=== PATIENT | male | born 2000 | race Caucasian/White ===

== ENCOUNTER 2021-05-24 06:34 | Emergency (ER) | payer OTHER ==
[~2021-05-24] VITALS: Ht 177.8 cm; Wt 104.3 kg
[2021-05-24] MEDS ORDERED: FUNGI NAIL TOP (07:22)
== END 2021-05-24 07:40 | disposition home or self-care (01) ==
LOC: FER 06:34
DX: S90.211A Contusion of right great toe with damage to nail, initial encounter (principal); F17.290 Nicotine dependence, other tobacco product, uncomplicated; Z86.73 Personal history of transient ischemic attack (TIA), and cerebral infarction without residual deficits; W45.0XXA Nail entering through skin, initial encounter
CPT/HCPCS: 99283

== ENCOUNTER 2021-07-22 16:59 | Emergency (ER) | payer OTHER ==
[~2021-07-22 16:59] MED LIST: FUNGI NAIL TOP
[2021-07-22 20:53] LABS: BILIRUBIN NEGATIVE (NEGATIVE); BLOOD 3+ Ery/uL (NEGATIVE); CLARITY CLEAR (CLEAR); COLOR YELLOW (YELLOW); GLUCOSE (U) NORMAL (NORMAL); LEUKOCYTES NEGATIVE Leu/uL (NEGATIVE); NITRITE NEGATIVE (NEGATIVE); PROTEIN NEGATIVE (NEGATIVE); SPECIFIC GRAVITY >=1.030 (1.001-1.030); UROBILINOGEN 0.2 mg/dL (0.2-1.0)
[2021-07-22 20:59] LABS: BACTERIA TRACE; MUCOUS MODERATE
[2021-07-22 21:17] LABS: HCT 43.2 % (42.0-52.0); HGB 14.8 g/dl (13.2-18.0); MCHC 34.3 g/dL (32.0-36.0); MCV 93.5 fL (78.0-100.0); MPV 9.6 fL (6.0-9.5); NRBC 0; PLT 296 K/uL (150-400); RBC 4.62 M/uL (4.70-6.00); RDW 11.9 % (11.5-14.0); WBC 10.7 K/uL (4.0-10.5)
[2021-07-22 21:26] LABS: BASOPHIL 0.2 % (0-2); EOSINOPHIL 1.9 % (0-5); NEUTROPHIL 65.2 % (41-80)
[2021-07-22 21:47] LABS: ALBUMIN 4.2 g/dL (3.4-5.0); BILIRUBIN - TOTAL 0.5 mg/dL (0.2-1.0); BUN/CREAT RATIO (CALC) 17.4 RATIO; CREATININE 0.86 mg/dL (0.67-1.17); GLOBULIN (CALCULATION) 3.7 g/dL; POTASSIUM 3.4 mmol/L (3.5-5.1); TOTAL PROTEIN 7.9 g/dL (6.4-8.2)
== END 2021-07-22 22:45 | disposition home or self-care (01) ==
LOC: FER 16:59
PROVIDERS: Internal Medicine
DX: R10.32 Left lower quadrant pain (principal)
CPT/HCPCS: 36415; 80053; 81001; 83690; 85025

== ENCOUNTER 2021-07-29 13:11 | Emergency (ER) | payer OTHER ==
[2021-07-29 17:01] LABS: BASOPHIL 0.5 % (0-2); HCT 44.1 % (42.0-52.0); HGB 15.2 g/dl (13.2-18.0); LYMPHOCYTE 37.3 % (15-48); MCH 32.5 pg (25.0-31.0); MCHC 34.5 g/dL (32.0-36.0); MCV 94.2 fL (78.0-100.0); MONOCYTE 7.2 % (0-12); MPV 9.6 fL (6.0-9.5); NEUTROPHIL 50.5 % (41-80); NRBC 0; PLT 310 K/uL (150-400); RBC 4.68 M/uL (4.70-6.00); RDW 12.2 % (11.5-14.0); WBC 8.1 K/uL (4.0-10.5)
[2021-07-29 17:19] LABS: CREATININE 0.79 mg/dL (0.67-1.17); POTASSIUM 4.3 mmol/L (3.5-5.1)
[2021-07-29 18:37] LABS: BILIRUBIN NEGATIVE (NEGATIVE); BLOOD NEGATIVE Ery/uL (NEGATIVE); CLARITY CLEAR (CLEAR); COLOR YELLOW (YELLOW); GLUCOSE (U) NORMAL (NORMAL); LEUKOCYTES NEGATIVE Leu/uL (NEGATIVE); NITRITE NEGATIVE (NEGATIVE); PROTEIN NEGATIVE (NEGATIVE); SPECIFIC GRAVITY 1.025 (1.001-1.030); UROBILINOGEN 0.2 mg/dL (0.2-1.0); pH 6.5 (5.0-9.0)
[2021-07-29 18:39] LABS: AMPHETAMINES NEGATIVE (NEGATIVE); BARBITURATES NEGATIVE (NEGATIVE); ECSTASY (MDMA) NEGATIVE (NEGATIVE); MARIJUANA (THC) NEGATIVE (NEGATIVE); METHADONE NEGATIVE (NEGATIVE); OPIATES NEGATIVE (NEGATIVE); OXYCODONE NEGATIVE (NEGATIVE)
== END 2021-07-29 19:46 | disposition home or self-care (01) ==
LOC: FER 13:11
PROVIDERS: Nurse Practitioner Family
DX: R07.89 Other chest pain (principal); R06.02 Shortness of breath; F17.290 Nicotine dependence, other tobacco product, uncomplicated
CPT/HCPCS: 36415; 71045; 80048; 80305; 81003; 84484; 85025; 85379; J1885